=== PATIENT | female | born 1950 | race Caucasian/White ===

== ENCOUNTER 2020-12-29 09:19 | Outpatient (CLI) | payer OTHER, SELFPAY ==
--- NOTE | ~2020-12-29 | XR_ITS ---
EXAMINATION: XR foot LT standing 2V, XR foot RT standing 2V DATE: 12/29/2020 09:49 INDICATION: Rheumatoid arthritis with rheumatoid factor TECHNIQUE: 1. Standing dorsal plantar and lateral views of the left foot were obtained. 2. Standing dorsal plantar and lateral views of the right foot were obtained. COMPARISON: None. FINDINGS: Bilateral hallux valgus, right greater than left. Alignment is otherwise normal at both feet. No frac tures. Hypertrophic and cystic change at the medial head of the right first metatarsal consistent wit h bunion. Osteotomy consistent with bunionectomy at the medial head of the left first metatarsal. Mod erate osteoarthritis at the left first metatarsophalangeal and right fourth tarsal metatarsal joints. Mild osteoarthritis at the left first metatarsophalangeal joint and many of the bilateral interphala ngeal and remaining tarsal metatarsal joints. No periarticular erosions to suggest an inflammatory ar thritis such as rheumatoid. Bilateral small plantar calcaneal spurs and tiny enthesopathic ossicles a t the calcaneal insertions of the bilateral Achilles tendons. Soft tissues are unremarkable with no a nkle joint effusions. IMPRESSION: 1. 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 Reviewed, dictated and finalized at location A. IMPRESSION: 1. 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
--- NOTE | ~2020-12-29 | XR_ITS ---
EXAMINATION: HAND-LEONCIO ARTHRITIS 3+VIEWS DATE: 12/29/2020 09:49 INDICATION: Unspecified osteoarthritis TECHNIQUE: Posteroanterior, lateral, and oblique views of the left and of the right hands as well as a ballcatchers view of both hands were obtained. COMPARISON: None. FINDINGS: Bone alignment is normal. No acute fracture. Relatively symmetric pattern of mild polyarticular osteo arthritis at the bilateral hands characterized by mild nonuniform joint space narrowing and/or small marginal osteophytes involving multiple bilateral interphalangeal joints with distal predominance, a few bilateral metacarpophalangeal joints as well as the bilateral triscaphe and first carpal metacarp al joints. Lytic lesions with well-defined thin sclerotic margins at the left and right ulnar styloid processes which could represent degenerative cystic change or chronic erosions. No erosions evident at the metacarpophalangeal joints. Tiny degenerative loose bodies versus heterotopic ossification at the ulnar side of the left second and third distal interphalangeal joints. Mild periarticular soft ti ssue swelling at the left second metacarpophalangeal and distal interphalangeal joints and to a lesse r degree at the contralateral right second metacarpophalangeal and distal interphalangeal joints. IMPRESSION: 1. Symmetric typical distribution of mild polyarticular osteoarthritis at the bilateral hands most pr ominent at the distal interphalangeal joints. 2. Lytic lesions with thin sclerotic margins at the bilateral ulnar styloid processes which could rep resent degenerative cystic change or chronic erosions related to either crystalline or nonspecific in flammatory arthritis. Reviewed, dictated and finalized at location A. IMPRESSION: 1. Symmetric typical distribution of mild polyarticular osteoarthritis at the b ilateral hands most prominent at the distal interphalangeal joints. 2. Lytic lesions with thin sclerotic margins at the bilateral ulnar styloid pro cesses which could represent degenerative cystic change or chronic erosions rel ated to either crystalline or nonspecific inflammatory arthritis.
== END 2020-12-29 09:20 | disposition home or self-care (01) ==
PROVIDERS: PCP Family Medicine; Visit Provider Internal Medicine
DX: M05.79 Rheumatoid arthritis with rheumatoid factor of multiple sites without organ or systems involvement (principal); M19.90 Unspecified osteoarthritis, unspecified site; M19.042 Primary osteoarthritis, left hand; M19.041 Primary osteoarthritis, right hand; M19.072 Primary osteoarthritis, left ankle and foot; M19.071 Primary osteoarthritis, right ankle and foot; M18.0 Bilateral primary osteoarthritis of first carpometacarpal joints
CPT/HCPCS: 73130; 73620